=== PATIENT | female | born 1935 | race Caucasian/White ===

== ENCOUNTER 2021-04-30 14:43 | Outpatient (CLI) | payer MEDICARE, SELFPAY ==
[2021-04-30 15:25] LABS: Erythrocyte Sedimentation Rate 89 mm/hr (0-15)
[2021-04-30 15:39] LABS: Alanine Aminotransferase < 5 U/L (0-33); Albumin Level 2.9 g/dL (3.5-5.2); Alkaline Phosphatase 43 IU/L (35-105); Aspartate Amino Transferase 15 U/L (0-32); Blood Urea Nitrogen 37 mg/dL (8-23); Calcium 9.8 mg/dL (8.5-10.5); Carbon Dioxide 37 mmol/L (22-29); Chloride 96 mmol/L (98-107); Globulin 3.1 g/dL (1.3-4.6); Glucose 104 mg/dL (65-115); Osmolality Calculated 301 mOsm/kg (285-295); Sodium 141 mmol/L (136-145); Total Bilirubin 0.3 mg/dL (0.15-1.2)
[2021-04-30 17:29] LABS: Basophils % 0.3 %; Eosinophils # 1.4 10^3/uL (0.0-0.8); Eosinophils % 19.7 %; Hemoglobin 9.1 g/dL (11.5-15.3); Lymphocytes % 13.8 %; Mean Corpuscular HGB Conc 33.7 g/dL (30.0-36.0); Mean Corpuscular Hemoglobin 32.4 pg (28.0-34.0); Mean Corpuscular Volume 96.1 fl (81-99); Mean Platelet Volume 11.9 fL (7.4-10.4); Monocytes # 0.4 10^3/uL (0.2-0.9); Monocytes % 5.8 %; Neutrophils # 4.28 10^3/uL (1.8-7.7); Neutrophils % 59.6 %; Nucleated Red Blood Cells % 0.3 %; Platelet Count 350 10^3/cmm (130-400); Red Blood Count 2.81 10^6/uL (4.1-5.3); Red Cell Distribution Width 19.2 % (12.1-15.1); White Blood Count 7.2 10^3/uL (4.0-10.0)
[2021-04-30 17:39] LABS: Add RBC Morph Yes; Slide Review Slide Review Perform
[2021-04-30 17:40] LABS: Hypochromasia 2+; Poikilocytosis 2+; RBC Morph Comp Yes; Schistocytes 1+; Target Cells 1+
[2021-04-30 17:41] LABS: Anisocytosis 1+; Ovalocytes Trace
== END 2021-04-30 14:44 | disposition home or self-care (01) ==
PROVIDERS: PCP Family Medicine; Visit Provider Family Medicine
DX: A41.01 Sepsis due to Methicillin susceptible Staphylococcus aureus (principal); E83.52 Hypercalcemia; G93.41 Metabolic encephalopathy
CPT/HCPCS: 80053; 85025; 85651; 86140